=== PATIENT | female | born 1985 | race Caucasian/White ===

== ENCOUNTER 2020-03-02 06:52 | Day surgery (SDC) | payer BC ==
--- NOTE | 2020-02-26 18:21 | NUR ---
COVID RESULTS Pt called to [facility] and requested covid results - pt ID [id number], test completed on 02/24/20 - with results negative, pt verbalized complete understanding.
[~2020-03-02] VITALS: Ht 165.1 cm; Wt 61.2 kg
[2020-03-02 07:36] LABS: HCG,QUAL RESULT NEGATIVE (NEGATIVE)
[2020-03-02] MEDS ORDERED: SIMETHICONE 40 MG/0.6 ML ML ONE (07:55)
[2020-03-02] MEDS ORDERED: BENZOCAINE 20% 0.5mL UD SPRAY MM ONE (07:55)
[2020-03-02] MEDS ORDERED: fentaNYL CITRATE/PF 100 MCG/2 ML AMP ONE (08:00)
[2020-03-02] MEDS ORDERED: MIDAZOLAM HCL 5 MG/5 ML VIAL ONE (08:01)
[2020-03-02] MEDS ORDERED: MEPERIDINE HCL/PF 100 MG/ML AMP ONE (08:26)
[2020-03-02 08:53] VITALS: BP_SYST 113
== END 2020-03-02 09:45 | disposition home or self-care (01) ==
LOC: SMU 06:52 → SDS 06:52
PROVIDERS: ATTEND Internal Medicine
DX: R13.10 Dysphagia, unspecified (principal); K29.50 Unspecified chronic gastritis without bleeding; B96.81 Helicobacter pylori [H. pylori] as the cause of diseases classified elsewhere; K21.00 Gastro-esophageal reflux disease with esophagitis, without bleeding; Z20.828 Contact with and (suspected) exposure to other viral communicable diseases
CPT/HCPCS: 43239; 43248; 84703; 88305; 88312; 88313; G0378; J2175; J2250; U0003; J3010